=== PATIENT | male | born 1995 | race Caucasian/White ===

== ENCOUNTER 2019-01-19 01:34 | Emergency (ER) | payer BC, OTHER ==
[~2019-01-19] VITALS: Ht 170.2 cm; Wt 61.2 kg
[2019-01-19] MEDS ORDERED: ONDANSETRON 4 MG (ZOFRAN) ORAL DISSOLVE TAB PO ONE (02:00)
[2019-01-19] MEDS ORDERED: MECLIZINE 25 MG (ANTIVERT) TAB PO ONE (02:00)
--- NOTE | 2019-01-19 02:20 | ED Syncope ---
General Chief Complaint: Dizziness/Syncope Stated Complaint: DIZZY,VOMITING,NAUSEA,FALL Nursing Triage Note: Pt reports he was playing video games around 0000 and had a syncopal episode and was "out" for unknown period of time. Pt reports vomiting after and c/o nausea at this time. Source of Information: Patient, Other Exam Limitations: No Limitations History of Present Illness Date Seen by Provider: Jan 19, 2019 Time Seen by Provider: 01:50 Initial Comments The patient presents to ER by private conveyance with chief complaint he was sitting up playing some video games around 100 1:15 when he started getting dizziness while sitting there. He describes some nausea after standing up in about 15-20 minutes later he says he was standing up and got so dizzy he passed out falling and striking his head. He says he was only out for about a minute or 2 and it was witnessed by his roommate and the roommates . He did vomit once. He's been having some fevers chills cough for the last to 3 days. He is not seeing anybody about it. Not taking any medications for it. He denies any ear pain but he does have some fullness in both ears. No sore throat. No feeling of shortness of breath, chest pain, neck pain, abdominal pain diarrhea. Allergies and Home Medications Allergies Coded Allergies: No Known Drug Allergies (Unverified , 01/19/19) Patient Home Medication List Home Medication List Reviewed: Yes Review of Systems Constitutional: chills, fever (subjective), malaise EENTM: No ear discharge, No hearing loss, No ear pain Respiratory: cough; No short of breath Cardiovascular: No chest pain, No edema Gastrointestinal: No abdominal pain, No constipation, No diarrhea; nausea, vomiting Genitourinary: No discharge, No dysuria Musculoskeletal: No back pain, No joint pain Past Gwmnpig-Fbxojt-Jhxevg Hx Patient Social History Alcohol Use: Rarely Uses Recreational Drug Use: No Smoking Status: Never a Smoker Recent Foreign Travel: No Contact w/Someone Who Travel: No Recent Infectious Disease Expo: No Recent Hopitalizations: No Seasonal Allergies Seasonal Allergies: No Past Medical History Surgeries: No Respiratory: No Cardiac: No Neurological: No Genitourinary: No Gastrointestinal: No Musculoskeletal: No Endocrine: No HEENT: No Cancer: No Psychosocial: No Integumentary: No Blood Disorders: No Physical Exam Vital Signs Vital Signs - First Documented 01/19/19 01:45 Temp 96.6 Pulse 75 Resp 18 B/P (MAP) 131/88 (102) Pulse Ox 100 O2 Delivery Room Air Capillary Refill : Less Than 3 Seconds Height, Weight, BMI Height: 5'7.00" Weight: 135lbs. oz. 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 Cranial Nerves: Normal Hearing, Normal Speech, PERRL Coordination/Gait: Normal Gait Motor/Sensory: No Motor Deficit, No Sensory Deficit Skin: Normal Color, Warm/Dry Progress/Results/Core Measures Results/Orders Micro Results Microbiology 01/19/19 Influenza Types A,B Antigen ([facility]) - Final, Complete My Orders Orders - YOSI GARCIA Influenza A And B Antigens (01/19/19 01:58) Ondansetron Oral Dissolve Tab (Zofran (01/19/19 02:00) Meclizine Tablet (Antivert Tablet) (01/19/19 02:00) Ekg Tracing (01/19/19 02:01) Orthostatic Vital Signs (Adult (01/19/19 03:49) Medications Given in ED Current Medications Medications Dose Ordered Sig/Placido Route Start Time Stop Time Status Last Admin Dose Admin Meclizine HCl 25 mg ONCE ONCE PO 01/19/19 02:00 01/19/19 02:01 DC 01/19/19 02:05 25 MG Ondansetron HCl 4 mg ONCE ONCE PO 01/19/19 02:00 01/19/19 02:01 DC 01/19/19 02:05 4 MG Vital Signs/I&O 01/19/19 01:45 Temp 96.6 Pulse 75 Resp 18 B/P (MAP) 131/88 (102) Pulse Ox 100 O2 Delivery Room Air Blood Pressure Mean: 102 Progress Progress Note #1: Time: 02:19 Progress Note We discussed the need for cranial imaging and patient declined any at this time. I agree that the benefits do not outweigh the risks. We'll get some EKG and give him some meclizine and Zofran for his nausea and dizziness that are probably secondary to his viral illness. His vital signs are normal. Progress Note #2: Time: 04:02 Progress Note Patient's symptoms improved significantly after the meclizine and Zofran. His orthostatics are negative.'s probably he's got a viral syndrome and has gotten himself little dehydrated. We've offered him IV fluids versus oral fluids. He is doing an oral fluid challenge in the prefer to avoid an IV. We've given him follow-up instructions and conservative management for oral rehydration therapy. Initial ECG Impression Date: Jan 19, 2019 Initial ECG Impression Time: 02:05 Initial ECG Rate: 61 Initial ECG Rhythm: Normal Sinus Initial ECG Intervals: Normal Initial ECG Impression: Normal Initial ECG Comparisson: No Previous ECG Available Comment No dysrhythmia or ST elevation or depression. Departure Impression Primary Impression: Orthostasis Additional Impressions: Viral upper respiratory tract infection Dizziness Syncope and collapse Disposition: 01 HOME, SELF-CARE Condition: Stable Departure-Patient Inst. Decision time for Depature: 04:06 Referrals: NO,LOCAL PHYSICIAN (PCP) Primary Care Physician Patient Instructions: Syncope (Fainting) (DC) Add. Discharge Instructions: Use Tylenol or ibuprofen agree having any body aches, fatigue or chills. Drink lots of fluids especially sports drinks such as Powerade or Gatorade. Use the meclizine once every 6 hours if you're feeling dizzy. Use the Zofran once every 6 hours if you're feeling nauseated. Follow-up with your primary care doctor in the following week if you're not feeling better by Sunday. All discharge instructions reviewed with patient and/or family. Voiced understanding. Scripts Meclizine HCl (Meclizine HCl) 25 Mg Tablet 25 MG PO Q6H PRN for DIZZINESS, #10 TAB 0 Refills Prov: YOSI GARCIA 01/19/19 Ondansetron (Ondansetron Odt) 4 Mg Tab.rapdis 4 MG PO Q6H PRN for NAUSEA/VOMITING, #10 TAB 0 Refills Prov: YOSI GARCIA 01/19/19 YOSI GARCIA Jan 19, 2019 02:20
[2019-01-19 04:03] VITALS: BP_SYST 111; BP_SYST 116; BP_SYST 126; BP_DIAS 74; BP_DIAS 83
[2019-01-19] MEDS ORDERED: ONDA4TAB11 PO (04:08)
[2019-01-19] MEDS ORDERED: MECL-106 PO (04:08)
[2019-01-19 04:14] VITALS: BP 116/83
== END 2019-01-19 04:14 | disposition home or self-care (01) ==
LOC: ER 01:37
DX: I95.1 Orthostatic hypotension (principal); J06.9 Acute upper respiratory infection, unspecified; R42 Dizziness and giddiness; R55 Syncope and collapse
CPT/HCPCS: 87804; 93005